=== PATIENT | female | born 1990 | race Caucasian/White ===

== ENCOUNTER 2017-08-18 19:18 | Emergency (ER) | payer SELFPAY ==
[2017-08-18] MEDS ORDERED: Acetaminophen 500 MG TAB ONE (20:41)
== END 2017-08-18 20:48 | disposition home or self-care (01) ==
LOC: ERS 19:18
DX: J11.1 Influenza due to unidentified influenza virus with other respiratory manifestations (principal); F17.210 Nicotine dependence, cigarettes, uncomplicated; Z71.6 Tobacco abuse counseling
CPT/HCPCS: 99406